=== PATIENT | female | born 2000 | race Caucasian/White ===

== ENCOUNTER 2024-02-04 20:50 | Observation (INO) | payer SELFPAY | END 2024-02-05 00:42 | disposition home or self-care (01) | LOC: MLD 20:50 | PROVIDERS: ADMIT Obstetrics & Gynecology; ATTEND Obstetrics & Gynecology | DX: O26.853 Spotting complicating pregnancy, third trimester (principal); Z3A.35 35 weeks gestation of pregnancy | CPT/HCPCS: G0378; G0379 ==